=== PATIENT | male | born 1955 | race Caucasian/White ===

== ENCOUNTER 2018-05-28 10:49 | Inpatient (IN) ==
[2018-05-28] MEDS ORDERED: ZOFRAN IV PRN (17:59)
[2018-05-28] MEDS ORDERED: TYLENOL PO PRN (17:59)
[2018-05-28] MEDS ORDERED: PHENERGAN PR PRN (17:59)
[2018-05-28 18:54] LABS: BASO# 0.02 X1000 (0.0-0.2); BASO% 0.5 % (0.0-0.8); EOS# 0.01 X1000 (0.0-0.7); EOS% 0.3 % (0.0-10.0); HEMATOCRIT 37.3 % (42.0-52.0); HEMOGLOBIN 12.8 g/dL (14.0-18.0); LYMPH# 0.52 X1000 (1.2-3.4); LYMPH% 13.3 % (20.5-51.1); MCH 35.9 PG (27-31); MCHC 34.3 g/dL (33-37); MCV 104.5 FL (81-99); MONO# 0.28 X1000 (0.11-0.59); MONO% 7.2 % (1.7-9.3); MPV 9.8 FL (7.4-10.4); NEUT# 3.07 X1000 (1.4-6.5); NEUT% 78.7 % (42.2-75.2); PLT 212 X1000 (130-400); RBC 3.57 XMIL (4.7-6.1); RDW 13.6 % (11.5-14.5)
[2018-05-28] MEDS: NS 1,000 ML IV SCH (18:58)
[2018-05-28 19:21] LABS: ALB/GLOB RATIO 1.5; ALBUMIN 4.1 g/dL (3.5-5.0); CALCIUM 9.3 mg/dL (8.8-10.2); CREATININE 1.4 mg/dL (0.7-1.2); POTASSIUM 3.4 mmol/L (3.5-5.1); TOTAL BILIRUBIN 0.48 mg/dL (0.20-1.00); TOTAL PROTEIN 6.9 g/dL (6.3-8.3)
[2018-05-28 20:03] LABS: INR 1.04; PROTIME 14.4 Seconds (11.0-16.0)
[2018-05-28 20:04] LABS: PTT 30.7 Seconds (22.3-41.8)
--- NOTE | 2018-05-29 00:04 | HISTORY AND PHYSICAL ---
PRIMARY CARE PROVIDER: Dr. Car Barnes. ONCOLOGIST: Dr. Bobby. TOWER EQUIPMENT INSTALLER: Dr. Dailey. CHIEF COMPLAINT: Patient was a direct admission from Dr. Bobby's office for dehydration, acute kidney injury, intractable nausea and vomiting. HISTORY OF PRESENT ILLNESS: Mr. Barton is a 62-year-old male who carries a past medical history of rectal adenocarcinoma with liver metastasis and colostomy, paroxysmal atrial fibrillation, hypothyroidism, hypertension and hyperlipidemia for which he no longer takes any medications for those. The patient reports poor appetite for 4 months. He has had a gradual decline in his overall status since January and accelerated in April. On February 27, he weighed 172 pounds. He is now down to 123. He had an EGD done by Dr. Nguyen a couple weeks ago for his intractable nausea and vomiting. Per patient report, it was normal. Per Dr. Bobby's office, he was found to have an acute kidney injury as well as dehydration. We do not have those lab results in our system. He was given 2 bags of fluid. He reported chills that started today. No headache. No reported fever. No cough. No chest pain. No palpitations. No dizziness. No headache. No dysuria. We will continue with IV hydration, check labs, EKG, chest x-ray, blood cultures. PAST MEDICAL HISTORY: 1. Hypertension. 2. Hyperlipidemia. 3. Rectal adenocarcinoma with liver metastases and colostomy. 4. Paroxysmal atrial fibrillation. 5. Hypothyroidism. PAST SURGICAL HISTORY: 1. Colostomy in July of 2017. 2. Tonsillectomy. 3. Two abdominal hernia repairs. FAMILY HISTORY: Father with CAD. Diabetes runs in his family. SOCIAL HISTORY: Patient lives in [place] with his . He works at [employer] in [place]. He continues to smoke about 15 cigarettes per day. However, it has lessened over the last few weeks. He has done so for several years. No alcohol or illicit drug use ALLERGIES: No known drug allergies. MEDICATIONS: Home medications have not been reconciled. Per patient, he takes: 1. 25 mcg of Synthroid daily. 2. He takes 3 nausea medications. The only one he can remember is Phenergan. He states that this one works best. We will need to continue to follow up on medication reconciliation. REVIEW OF SYSTEMS: A 14 point review of systems completely negative except for those mentioned in HPI. PHYSICAL EXAMINATION: VITAL SIGNS: Temperature is 97.7 degrees axillary, heart rate 63, respirations 16, blood pressure 155/76, O2 is 100% on room air. GENERAL: Mr. Barton is a cachectic 62-year-old male who is sitting up in the bed in no acute distress. HEENT: Atraumatic, normocephalic. PERRL. NECK: Supple. Trachea midline. CARDIOVASCULAR: S1, S2 appreciated. No murmurs, gallops, or rubs noted. RESPIRATORY: Lung sounds clear. Equal chest excursion. Nonlabored breathing. GASTROINTESTINAL: Flat, nontender, nondistended. Positive bowel sounds 4 quadrants. EXTREMITIES: Negative for edema. Bilateral pedal pulses are palpable. Extremities are cool to the touch. SKIN: Appears to be warm, dry, and intact. LABORATORY AND DIAGNOSTIC DATA: Ordered and pending. ASSESSMENT AND PLAN: Rectal adenocarcinoma with liver metastasis. The patient was a direct admit from Dr. Bobby's office. We will continue to follow his recommendations. 1. Dehydration. The patient has not been eating or drinking over the last few months. Per report, he had a creatinine of 2.6 and a baseline at 1.3. We will continue with IV hydration. Per patient, he received 2 bags of IV fluids Dr. Bobby's office prior to being admitted. 2. Intractable nausea and vomiting. We will continue with Zofran and Phenergan. 3. Acute kidney injury. We will continue with IV hydration. The creatinine reported to us was 2.6 with a baseline of 1.3. 4. Hypothyroidism. We will check a TSH. Continue Synthroid when verified. 5. Hypertension. Patient is currently not on any hypertensive medications after weight loss. 6. Hyperlipidemia. He has been taken off a statin. 7. Paroxysmal atrial fibrillation. Per patient, he is not on any medications for his atrial fibrillation or blood thinners. 8. Update and confirm home medications. 9. Further recommendation to follow physician evaluation, laboratory, and diagnostic data. Dictated by DONTAE Mckeon for Boyd Walters MD Addendum: Patient seen and examined by myself. Agree with DONTAE note. It reflects my assessment and plan. Patient is being admitted to hospital for for dehydration and ESVIN. Will start IV fluids and will check BMP daily. Will resume home medications as well and for management of rectal adenocarcinoma will consult his oncologist. Will monitor patient closely. cc: MD Augustine Mcintyre MD Michael C. Donham, MD Ashish K. Basu, MD MTDD
[2018-05-29] MEDS: NS 1,000 ML IV SCH ×4 (02:48→14:21)
[2018-05-29 06:45] LABS: BASO# 0.02 X1000 (0.0-0.2); BASO% 0.4 % (0.0-0.8); EOS# 0.04 X1000 (0.0-0.7); EOS% 0.8 % (0.0-10.0); HEMATOCRIT 38.4 % (42.0-52.0); HEMOGLOBIN 13.1 g/dL (14.0-18.0); IMM GRAN# 0.02 X1000 (0.0-0.04); IMM GRAN% 0.4 % (0.0-0.5); LYMPH# 0.77 X1000 (1.2-3.4); LYMPH% 15.2 % (20.5-51.1); MCH 34.8 PG (27-31); MCHC 34.1 g/dL (33-37); MCV 102.1 FL (81-99); MONO% 7.9 % (1.7-9.3); MPV 9.9 FL (7.4-10.4); NEUT# 3.82 X1000 (1.4-6.5); NEUT% 75.3 % (42.2-75.2); PLT 237 X1000 (130-400); RBC 3.76 XMIL (4.7-6.1); RDW 13.5 % (11.5-14.5); WBC 5.07 X1000 (4.8-10.8)
[2018-05-29 07:15] LABS: ALB/GLOB RATIO 1.8; ALBUMIN 4.3 g/dL (3.5-5.0); CALCIUM 9.5 mg/dL (8.8-10.2); CREATININE 1.3 mg/dL (0.7-1.2); MAGNESIUM 1.6 mg/dL (1.5-2.7); TOTAL BILIRUBIN 0.7 mg/dL (0.20-1.00); TOTAL PROTEIN 6.7 g/dL (6.3-8.3)
--- NOTE | 2018-05-29 07:48 | EKG Report ---
Test Performed on : 05/29/2018 07:27:10 AM Test Reason : chest pain Blood Pressure : / mmHG Vent. Rate : 052 BPM Atrial Rate : 052 BPM P-R Int : 178 ms QRS Dur : 110 ms QT Int : 494 ms P-R-T Axes : 078 064 -41 degrees QTc Int : 459 ms Sinus bradycardia. with sinus arrhythmia. Cannot rule out Inferior infarct , age undetermined Abnormal ECG No previous ECGs available Confirmed by Tyler WHITTEN, Betito Perez ([id number]) on 05/29/2018 4:53:32 PM
--- NOTE | 2018-05-29 08:02 | Diag Imaging Result Doc PS360 ---
EXAM: CHEST-PORTABLE - 05/29/2018 HISTORY: bia, dehydration, N/V TECHNIQUE: Portable chest COMPARISON: 12/08/2014 FINDINGS: Heart size is normal. There is mild tortuosity of the thoracic aorta. The lungs appear clear. There is no pleural effusion or pneumothorax identified. There is a left subclavian central venous catheter with its tip at the superior vena cava. IMPRESSION: No evidence of acute disease. Electronically signed by Feliberto Ann 05/29/2018 8:00 AM
[2018-05-29] MEDS ORDERED: POTASSIUM CHLORIDE 60 MEQ in NS 500 ML IV ONE (09:25)
--- NOTE | 2018-05-29 09:30 | HEMO/ONC CONSULTATION ---
DATE: 05/29/2018 CHIEF COMPLAINT: We have been consulted for further management of patient's rectal adenocarcinoma with liver metastasis. HISTORY OF PRESENT ILLNESS: Mr. Barton presented to our office yesterday for his next round of chemotherapy and upon evaluation, patient had lost 13 pounds within the last 14 days. The patient also complained of increased amounts of nausea and vomiting, unable to eat any food, is able to keep down maybe 1 to 2 protein shakes a day. Creatinine in the office was 2.3. Mucous membranes appear to be very dry, and patient was going into acute renal failure due to dehydration, and at that time, the patient was decided to be admitted to the hospital for further evaluation and management. Mr. Barton is well known to our office, where he follows up for his rectal adenocarcinoma. He was initially diagnosed with poorly differentiated rectal adenocarcinoma in April 2017. He underwent resection in July 2017. He was started on HP chemotherapy with FOLFOX on 10/09/2017. He received 4 cycles and then had restaging scans, which revealed metastatic disease, and then he was changed to FOLFIRI and Vectibix on 01/15/2018. Due to increased nausea and vomiting, the patient had been sent for an EGD, where nothing acute was found at that time to be causing his nausea and vomiting as well. PAST MEDICAL HISTORY: Hypertension, hyperlipidemia, rectal adenocarcinoma with liver metastasis, colostomy paroxysmal atrial fibrillation, and hypothyroidism. PAST SURGICAL HISTORY: Colostomy, tonsillectomy, and 2 abdominal hernia repairs. FAMILY HISTORY: Coronary artery disease and diabetes mellitus. SOCIAL HISTORY: Smokes about half pack cigarettes a day. Denies any alcohol or illicit drug use. ALLERGIES: No known drug allergies. HOME MEDICATIONS: Allopurinol, Lipitor, cilostazol, Synthroid, losartan, metoprolol, Zofran, Reglan, and Phenergan. REVIEW OF SYSTEMS: Negative other than what is mentioned in HPI. PHYSICAL EXAMINATION: Vital Signs: Temperature 97.6 degrees, heart rate 52, respiratory rate 18, blood pressure 150/76, saturating 100% on room air. General: Patient is awake , lying in bed, no acute distress noted. HEENT: Anicteric. Pupils: PERRLA. Mucous membranes appear to be dry. Neck: Supple. Trachea midline. Lymph node survey: No palpable lymphadenopathy. Cardiovascular: S1 , S2. Regular rate and rhythm. Chest: Bilateral breath sounds. Clear to auscultation. Abdomen: Soft, nontender, nondistended. Bowel sounds present all 4 quadrants. No hepatosplenomegaly noted. Skin: Warm, dry, and intact. No petechiae. No clubbing, no rashes, no cyanosis. Neurologic: Alert and oriented x3. No focal deficits noted. LABORATORY DATA: White count 5.07, hemoglobin 13.1, hematocrit 38.4, platelets are 237. Potassium 3.0, BUN 41, creatinine 1.3. ASSESSMENT AND PLAN: 1. Stage IV rectal adenocarcinoma: The patient has increased amounts of nausea and vomiting, unable to tolerate his recent chemotherapy treatments due to extreme amount of nausea. Once patient is discharged and back to baseline, we will consider further treatment options at that time. 2. Acute renal failure due to dehydration: The patient's creatinine in the office yesterday due to dehydration was 2.28. The patient's baseline creatinine runs anywhere from 0.8 to 1.2. Continue hydration with intravenous fluids at this time. Continue to monitor very closely. 3. Nausea and vomiting: Patient will receive Zofran 16mg IV Daily. Reglan 10mg IV prior to each meal, and has Phenergan PRN as needed. Will continue to monitor. 4. Hypokalemia: The patient received 40 mEq of potassium in office yesterday. Continue replacement as necessary. Continue to monitor. 5. Hypothyroidism. Continue recommendations per primary medical team. 6. Hypertension. Continue recommendations by primary medical team. Plan of care discussed with Dr. Bobby. Dictated by DONTAE Orellana for Augustine Bobby MD cc: DONTAE Orellana MD [facility]
--- NOTE | 2018-05-29 11:21 | PROGRESS NOTE ---
DATE: 05/29/2018 SUBJECTIVE: The patient reports feeling better. The patient reports being with a poor appetite for the last couple months but today he ate. He was hungry. No nausea or vomiting after. OBJECTIVE: Vital Signs: Temperature 97.6 degrees, heart rate 52, respiratory rate 18, blood pressure 150/76, O2 saturation 100% on room air. General Examination: This is a chronically ill- looking, 62-year-old, male, looking older than his stated age. Lying in bed, in no acute distress. HEENT: Head is normocephalic and atraumatic. Neck: No JVD noted. No carotid bruits. No lymphadenopathy. No thyromegaly. Cardiovascular Examination: S1 and S2 heard. No murmurs, gallops, or rubs. Regular rate and rhythm. Respiratory Examination: Clear bilaterally to auscultation. No work of breathing or using accessory muscles. Abdomen: Soft, nontender to palpation. Bowel sounds present. No organomegaly. Extremities: No clubbing, cyanosis, or edema. Peripheral pulses present in both legs. Neurological Examination: The patient is alert and oriented x3. Moves 4 extremities. Laboratory Data: White cell count 5.07, hemoglobin 13.1, hematocrit 38.4, platelets 237,000. BMP remarkable for potassium 3.0, creatinine 1.3, BUN 41. ASSESSMENT/PLAN: 1. Acute dehydration. According to information provided by Dr. Bobby's office and by the patient, he has not been eating or drinking over the last 2 to 3 months. Today, he reported that he was feeling hungry and he ate normally. He is not feeling nauseated anymore. At some point, he had reached a creatinine of 2.6. Today, it is 1.3. I think we will continue with intravenous hydration and keep checking BMP daily. 2. Intractable nausea and vomiting. That condition actually has resolved. Patient has eaten today. No complaints of nausea or vomiting. 3. Acute kidney injury. Patient's creatinine is back to baseline. It is 1.3. We will continue to monitor. 4. Hypothyroidism. We will continue with Synthroid home doses. 5. Hypertension. The patient's blood pressure has been controlled after he lost weight. We will continue to monitor vitals every 6 hours. 6. Hyperlipidemia. The patient is not on any statins. 7. Paroxysmal atrial fibrillation. He is not on any blood thinners or any medications to control heart rate, according to the patient. 8. Disposition. I think this patient is doing good. Clinically, he is not nauseated, he is not vomiting, he is eating fine this morning so I am anticipating that he will be discharged in the next 24 to 48 hours. cc: Boyd Walters MD
[2018-05-29] MEDS: ZOFRAN 16 MG in NS 25 ML IV SCH ×2 (12:25→12:30)
[2018-05-29] MEDS ORDERED: TUMS PO PRN (14:11)
--- NOTE | 2018-05-29 14:20 | Diag Imaging Result Doc PS360 ---
EXAM: CT ABDOMEN/PELVIS W/WO CONTRAS INDICATION: rectal adenocarcinoma TECHNIQUE: This exam was performed using automated exposure control, adjustment of mA or kV according to patient size, and/or use of iterative reconstruction technique. COMPARISON: 03/10/2018 FINDINGS: There are several small low dense hepatic nodules consistent with the known liver metastases. These are approximately stable. No new liver lesions are identified. The gallbladder, spleen, and pancreas are unremarkable. There is a small low-density nodule in the right adrenal gland that is stable. There is nonspecific generalized mild mesenteric edema that has developed. This appears to be concentrated around the kidneys. There is no abnormal renal enhancement, however. There are a few stable cystic appearing tiny renal foci. Urinary bladder is unremarkable. There are stable postsurgical changes associated with the right colon and there is a stable patent colostomy on the left. There are fluid-filled loops of small bowel throughout the abdomen with only mild distention. This is nonspecific. It probably represents ileus. Low-grade bowel obstruction is less likely. The remainder of the GI tract is essentially unremarkable. There is aortoiliac atherosclerotic calcification. There is a prominent eccentric aneurysm arising from the proximal right common iliac artery near its origin. It is approximately stable in size measuring up to 3.8 x 2.9 cm (3.7 x 2.8 cm previously), but there is now significant mural thrombus associated with the aneurysm that has developed during the interval. No new lymphadenopathy is appreciated. There is nothing to suggest bony metastatic disease locally. IMPRESSION: 1.Nonspecific generalized mesenteric edema. Consider anasarca. 2.Fluid-filled loops of small bowel throughout the abdomen with mild distention that probably represents ileus. Low-grade obstruction is less likely. 3.Right common iliac artery aneurysm that is similar in size the previous study but there is now significant mural thrombus. 4.Essentially stable abdomen and pelvis, otherwise. Electronically signed by Chano Moralez 05/29/2018 2:18 PM
[2018-05-29] MEDS: REGLAN IV SCH (16:40)
[2018-05-30] MEDS: NS 1,000 ML IV SCH ×3 (01:29→09:30)
[2018-05-30] MEDS: REGLAN IV SCH ×2 (06:42→10:50)
[2018-05-30 07:09] LABS: BASO# 0.04 X1000 (0.0-0.2); BASO% 1.1 % (0.0-0.8); EOS# 0.04 X1000 (0.0-0.7); EOS% 1.1 % (0.0-10.0); HEMATOCRIT 31.9 % (42.0-52.0); HEMOGLOBIN 10.8 g/dL (14.0-18.0); LYMPH# 0.55 X1000 (1.2-3.4); LYMPH% 15.6 % (20.5-51.1); MCH 34.6 PG (27-31); MCHC 33.9 g/dL (33-37); MCV 102.2 FL (81-99); MONO% 11.4 % (1.7-9.3); MPV 9.6 FL (7.4-10.4); NEUT# 2.49 X1000 (1.4-6.5); NEUT% 70.8 % (42.2-75.2); PLT 194 X1000 (130-400); RBC 3.12 XMIL (4.7-6.1); RDW 13.1 % (11.5-14.5); WBC 3.52 X1000 (4.8-10.8)
[2018-05-30 07:28] LABS: AGAP 10; BUN 26 mg/dL (8-22); CALCIUM 8.7 mg/dL (8.8-10.2); CHLORIDE 109 mmol/L (98-107); COSMO 278; CREATININE 0.9 mg/dL (0.7-1.2); ESTIMATED GFR > 60; GLUCOSE 82 mg/dL (70-104); POTASSIUM 3.9 mmol/L (3.5-5.1); SODIUM 137 mmol/L (136-145); TCO2 18 mmol/L (25-35)
--- NOTE | 2018-05-30 09:11 | HEMO/ONC PROGRESS NOTE ---
DATE: 05/30/2018 SUBJECTIVE: The patient nausea continues to improve. The patient is starting to feel much better. OBJECTIVE: Vital Signs: Temperature 97.5, heart rate 54, respiratory rate 18, blood pressure 129/71. Sat 100% on room air. General: The patient is awake, lying in bed. No acute distress noted. HEENT: Anicteric. Pupils PERRLA. Mucous membranes moist. Cardiovascular: S1, S2. Regular rate and rhythm. Chest: Bilateral breath sounds. Clear to auscultation. Abdomen soft, nontender. Bowel sounds present in all 4 quadrants. Neurologic: Alert and oriented x3. No focal deficits noted. LABORATORY DATA: White blood cell count 3.52, hemoglobin 10.8, hematocrit 31.9 , platelets are 194,000. Potassium 3.9. BUN 26, creatinine 0.9. ASSESSMENT AND PLAN: 1. Stage IV rectal adenocarcinoma: Once the patient is back to baseline, we will discuss further treatment at that time. 2. Acute renal failure due to dehydration: Creatinine continues to improve. Today, it is 0.9. Continue rehydration. 3. Nausea and vomiting: The patient will continue to receive Zofran 16 mg IV daily and Reglan 10 mg IV prior to each meal. The patient's nausea is improving. He will try regular diet and if tolerated ok to discharge home. We will continue to monitor. Dictated by DONTAE Orellana for Augustine Bobby MD Patient seen and examined. Patient has been on liquid diet last night and this morning. Tolerated this without any nausea or vomiting. His dehydration has resolved. Creatinine is back to baseline. Discussed with Dr. Escalante. Advanced to regular diet. If he tolerates this well, he will be discharged on current antiemetic regimen. Augustine Bobby M.D. cc: DONTAE Orellana MD [facility]
[2018-05-30] MEDS: ZOFRAN 16 MG in NS 25 ML IV SCH (09:35)
[2018-05-30 12:02] VITALS: BP 118/67
--- NOTE | 2018-05-31 16:21 | DISCHARGE SUMMARY ---
ADMISSION DATE: 05/28/2018 DISCHARGE DATE: 05/30/2018 DISCHARGE DIAGNOSES: 1. Acute dehydration, resolved. 2. Acute kidney injury, resolved. 3. Intractable nausea and vomiting, resolved. 4. Hypothyroidism, stable. 5. Hypertension, stable. 6. Hyperlipidemia. 7. Paroxysmal atrial fibrillation, stable. CONSULTATIONS: Dr. Bobby from Oncology. PROCEDURES: 1. Chest x-ray done on admission showed no evidence of acute disease. 2. Abdomen and pelvis CT without contrast showed nonspecific generalized mesenteric edema. Consider anasarca with fluid-filled loops of small bowel throughout the abdomen with mild distention that probably represent ileus. 3. Right normal celiac artery aneurysm that is similar in size than the previous study. 4. Essential stable abdomen and pelvis otherwise. HOSPITAL COURSE: In brief, this is a 62-year-old male, who came as a direct admission from Dr. Bobby's office for dehydration, acute kidney injury and intractable nausea and vomiting. He has no history of rectal adenocarcinoma with liver metastasis and colostomy as well. He was started on IV fluids and medication for nausea. He started feeling better day after admission. We started clear liquid diet and, after a few months, he started having better appetite. Renal function recovered completely. The patient on the date of discharge was eating okay. I talked with his oncologist about next step in his management. He was okay to send him home. He will see him in the office in 1 week. It is important to remark that he had EGD done by his primary gastrointestinal doctor, Dr. Nguyen, a couple weeks ago from admission for intractable nausea and vomiting, but was normal. At this time, patient is going to be discharged in stable condition. DISCHARGE PHYSICAL EXAMINATION: Vital Signs: Temperature 97.6 degrees, heart rate 97, respiratory rate 18, blood pressure 118/67, O2 saturation 95% on room air. General Examination: This is a 62-year-old male, lying in bed in no acute distress. HEENT: Head is normocephalic, atraumatic. Neck: No JVD noted. No carotid bruits. No lymphadenopathy. No thyromegaly. Cardiovascular exam: S1, S2 heard. No murmurs, gallops, or rubs. Regular rate and rhythm. Respiratory exam: Clear bilaterally to auscultation. No work of breathing or using accessory muscles. Abdomen: Soft, nontender to palpation. Bowel sounds present. No organomegaly. Extremities: No clubbing, cyanosis, or edema. Peripheral pulses present in both legs. Neurological exam: Patient alert and oriented x3. Moves 4 extremities. DISCHARGE DISPOSITION: Home to self-care. LIST OF MEDICATIONS.: 1. Zofran 8 mg 2 tablets p.o. every 6 hours as needed for nausea. 2. Allopurinol 1 tablet p.o. daily. 3. Lipitor 1 tablet p.o. daily. 4. Cilostazol 1 tablet p.o. b.i.d. 5. Levothyroxine 1 tablet p.o. daily. 6. Metoprolol 1 tablet p.o. daily. FOLLOWUP: Follow up with Dr. Bobby in a week. TIME DISCHARGING THIS PATIENT: 26 minutes. cc: Boyd Walters MD
== END 2018-05-30 14:59 | disposition home or self-care (01) | DRG 392 ==
LOC: DIRADM 10:49 → 3N 17:29
PROVIDERS: ATTEND Internal Medicine
CPT/HCPCS: 71010; 71045; 74178; 80048; 80053; 82550; 82607; 82746; 83605; 83735; 84443; 84484; 85025; 85610; 85730; 87040; 93005; 93010; A9270; J2405; J2765; J3480; J7030; J7040; Q9967

== ENCOUNTER 2018-06-12 05:38 | Inpatient (IN) ==
[2018-06-12] MEDS ORDERED: NS 2,000 ML ONE (05:41)
[2018-06-12] MEDS ORDERED: LANOXIN IV ONE ×2 (06:15→07:58)
--- NOTE | 2018-06-12 06:42 | PROVIDER DOCUMENTATION ---
HPI-General Adult - General Chief Complaint: Syncope Stated Complaint: syncope Time Seen by Provider: 06/12/18 05:40 Source: patient, family, old records Allergies/Adverse Reactions: Patient Allergies Allergy/AdvReac Type Severity Reaction Status Date / Time No Known Allergies Allergy Verified 12/23/17 07:41 Home Medications: Home Medication List Medication Instructions Recorded Confirmed Last Taken Type ATORVAstatin [Lipitor] 1 tab PO DAILY 12/10/17 12/23/17 12/23/17 06:00 History Allopurinol 1 tab PO DAILY 12/10/17 12/23/17 12/23/17 06:00 History Cilostazol 1 tab PO BID 12/10/17 12/23/17 12/23/17 06:00 History Levothyroxine [Synthroid] 1 tab PO DAILY 12/10/17 12/23/17 12/23/17 06:00 History Metoprolol Succinate 1 tab PO DAILY 12/10/17 12/23/17 12/23/17 06:00 History Ondansetron [Zofran] 2 tab PO Q6H PRN PRN #60 tab 05/30/18 Unknown Rx - History of Present Illness -Gen Adult Nature of Presenting Problems: 62 yo WM with advanced rectal cancer was just discharged from the hospital a few days ago following an admission for severe dehydration. Chemotherapy was discontinued a few months ago and Dr Bobby has encouraged him to focus on comfort measures, enter the Hospice program , etc. He refused and has continued to vomit and stool non stop. Ultimately he collapsed at which point EMS wa called. His BP en route was60/40 and HR 140, the rhythm atrial fib. Review of Systems - Adult - REVIEW OF SYSTEMS - ADULT ROS:: unobtainable per condition Constitutional: reports: weight loss Eyes: reports: no symptoms reported Ears, Nose, Mouth & Throat: reports: no symptoms reported Cardiovascular: reports: no symptoms reported, irregular heart rate, poor circulation. denies: edema Respiratory: reports: chronic cough, dyspnea on exertion Gastrointestinal: reports: see HPI, abdominal pain, diarrhea, difficulty swallowing, poor appetite, vomiting Genitourinary: reports: no symptoms reported Musculoskeletal: reports: no symptoms reported Integumentary: reports: no symptoms reported Neurological: reports: ataxia, dizziness/vertigo, loss of balance, numbness, paresthesia, syncope Psychiatric: reports: depression Endocrine: reports: no symptoms reported Hematologic/Lymphatic: reports: no symptoms reported Allergic/Immunologic: reports: no symptoms reported Past History - Adult - PAST MEDICAL HISTORY-ADULT Review of Records: reports: Old Records Reviewed, Nursing Assessment Review - PRIOR SURGERIES/PROCEDURES Surgical/Procedure History: reports: colonoscopy, bowel surgery - SOCIAL HISTORY Smoking: denies Substance Use: none/never Alcohol Use Frequency: never Physical Exam-General - PHYSICAL EXAM-ADULT Initial Vital Signs Reviewed: Yes - CONSTITUTIONAL General Appearance: severe distress, cachetic - EYES Eyes: PERRL/EOMI, pink conjunctivae, anisocoria - HEAD, EARS, NOSE, MOUTH & THROAT HENMT: normocephalic/atraumatic - NECK Neck: supple. negative: lymphadenopathy - RESPIRATORY Respiratory: chest non-tender, lungs clear, normal breath sounds, accessory muscle use - CARDIOVASCULAR Cardiovascular: no edema, no gallop, JVD, irregularly irregular (HR 150 -afib) - GASTROINTESTINAL (ABDOMEN) Abdominal Exam: soft, hepatomegaly, other (colostomy in place). negative: normal bowel sounds, non tender Progress - PLAN OF CARE/RESULTS Progress/Plan/Lab Results: Vital Signs - 8 hr 06/12/18 05:45 06/12/18 06:00 06/12/18 06:10 Temperature Pulse Rate 106 H 136 H 142 H Respiratory Rate 17 13 19 Blood Pressure 63/28 67/46 130/85 06/12/18 06:20 06/12/18 06:21 06/12/18 06:25 Temperature 97 F L Pulse Rate 146 H 160 H 149 H Respiratory Rate 17 36 H 16 Blood Pressure 126/60 63/38 111/84 06/12/18 06:30 Temperature Pulse Rate 139 H Respiratory Rate 20 Blood Pressure 134/79 Orders Category Date Time Status CBC WITH ELECTRONIC DIFF [HEME] Stat Lab 06/12/18 06:17 Uncollected COMPREHENSIVE METABOLIC PANEL [CHEM] Stat Lab 06/12/18 06:17 Uncollected OCCULT BLOOD SCREENING [STOOL] Stat Lab 06/12/18 06:18 Uncollected TYPE & SCREEN [BBK] Stat Lab 06/12/18 06:28 Uncollected 0.9% Sodium Chloride Inj [Ns] 2,000 ml Med 06/12/18 05:41 Discontinued .ROUTE As Directed Digoxin [Lanoxin] Med 06/12/18 06:15 Discontinued 500 microgm IV NOW ONE He is profoundly ill and not likely to survive the day. The smell is that of a GI bleed although Hct is 30.5%. Stool is brown and watery, guiac sent. Idid visit with his for quite a while and ultimately the pt gave her POA and she did elect to make him DNR and focus primarily on comfort measures. - REASSESSMENT Reassessment #1 Time Reassessed: 07:17 Status: improving (BP and HR improved with IVFs. and patient in agreement with comfort measures only.) - EKG 1 Time of EKG reading by physician:: 06:30 EKG Read and Signed by:: Geovanni Rivera EKG Interpretation (*Must complete 3 of following elements*): Abnormal Rate: 146 Rhythm: atrial fib with RVR QRS: normal ST Wave: normal Prior EKG Comparison: no prior EKG - CONSULTS/PCP/HOSPITALIST Notification #1 *Consult/PCP/Hospitalist*: Dr Escalante Time Discussed: 07:16 Consult Disposition: Admit Departure - Departure Date of Disposition Decision: 06/12/18 Time of Disposition Decision: 07:05 DIAGNOSIS: Rectal cancer metastasized to liver, Atrial fibrillation with rapid ventricular response, GIB (gastrointestinal bleeding) Disposition: ADMITTED INPATIENT 09 Certified Medical Emergency: Emergent Condition: Critical Referrals and Follow-Ups: Augustine Bobby MD [Primary Care Provider] - - Critical Care Note This patient required my direct & personal management of CC.: Yes Total Time (mins): 40 Critical Care Statement: This patient required my direct personal management to treat or rule out processes, the absence of which, could potentiallly result in sudden, clinically significant life or limb threatening deterioration. Attestation - Physician/ VIC Attestation The physician spent face to face time with patient:: Yes Advanced Practice Provider documentation review:: Supervising physician onsite and consulted in the evaluation and care of this patient. The physician did have a face to face encounter with the patient.
[2018-06-12 07:22] LABS: HEMATOCRIT 35.5 % (42.0-52.0); HEMOGLOBIN 12.2 g/dL (14.0-18.0); IMM GRAN# 0.03 X1000 (0.0-0.04); IMM GRAN% 0.5 % (0.0-0.5); LYMPH# 0.45 X1000 (1.2-3.4); LYMPH% 7.2 % (20.5-51.1); MCH 34.8 PG (27-31); MCHC 34.4 g/dL (33-37); MCV 101.1 FL (81-99); MONO# 0.18 X1000 (0.11-0.59); MONO% 2.9 % (1.7-9.3); MPV 10.6 FL (7.4-10.4); NEUT# 5.57 X1000 (1.4-6.5); NEUT% 89.4 % (42.2-75.2); PLT 227 X1000 (130-400); RBC 3.51 XMIL (4.7-6.1); RDW 14.3 % (11.5-14.5); WBC 6.23 X1000 (4.8-10.8)
--- NOTE | 2018-06-12 07:43 | EKG Report ---
Test Performed on : 06/12/2018 05:53:10 AM Test Reason : ED. NO EKG ORDER FOR MUSE Blood Pressure : / mmHG Vent. Rate : 146 BPM Atrial Rate : 214 BPM P-R Int : 000 ms QRS Dur : 092 ms QT Int : 348 ms P-R-T Axes : 000 064 248 degrees QTc Int : 542 ms Atrial fibrillation. with rapid ventricular response. ST & T wave abnormality, consider inferior ischemia Abnormal ECG When compared with ECG of 29-MAY-2018 07:27, Atrial fibrillation. has replaced Sinus rhythm. Vent. rate has increased BY 94 BPM Minimal criteria for Inferior infarct are no longer present Nonspecific T wave abnormality, worse in Lateral leads Unconfirmed Result
[2018-06-12] MEDS ORDERED: DUONEB (A & A) INH PRN (07:44)
[2018-06-12] MEDS ORDERED: SODIUM CHLORIDE 0.9% INJ PRN (07:44)
[2018-06-12] MEDS ORDERED: ZOFRAN IV PRN (07:44)
[2018-06-12] MEDS ORDERED: PHENERGAN IV PRN (07:44)
[2018-06-12] MEDS ORDERED: TYLENOL PO PRN (07:44)
[2018-06-12 07:45] LABS: ALB/GLOB RATIO 1.5; ALBUMIN 3.3 g/dL (3.5-5.0); CALCIUM 8.2 mg/dL (8.8-10.2); CREATININE 2.8 mg/dL (0.7-1.2); POTASSIUM 3.3 mmol/L (3.5-5.1); TOTAL BILIRUBIN 0.66 mg/dL (0.20-1.00); TOTAL PROTEIN 5.5 g/dL (6.3-8.3)
[2018-06-12] MEDS ORDERED: NS 1,000 ML IV SCH (07:45)
[2018-06-12] MEDS ORDERED: ATIVAN IV PRN (07:45)
[2018-06-12] MEDS ORDERED: POTASSIUM CHLORIDE 20 MEQ/SWI 20 MEQ/100 ML IVPB IV ONE (07:53)
[2018-06-12] MEDS ORDERED: NS 1,000 ML IV ONE ×3 (07:56→07:58)
[2018-06-12] MEDS ORDERED: CORDARONE IV ONE (07:58)
[2018-06-12] MEDS: PROTONIX IV SCH ×2 (08:10→22:24)
[2018-06-12] MEDS: SODIUM CHLORIDE 0.9% INJ SCH (08:10)
[2018-06-12] MEDS: NS 1,000 ML IV SCH ×2 (08:30→22:24)
[2018-06-12] MEDS ORDERED: MAGNESIUM SULFATE 4 GM/S.W.I. 4 GM/100 ML IVPB IV ONE (08:41)
[2018-06-12 08:44] LABS: FREE T4 1.03 ng/dL (0.93-1.70); TSH 3.54 uIUmL (0.27-4.20)
[2018-06-12] MEDS: DUONEB (A & A) INH SCH ×2 (09:17→16:52)
[2018-06-12] MEDS: CARAFATE LIQUID PO SCH ×2 (11:05→16:19)
--- NOTE | 2018-06-12 12:23 | HISTORY AND PHYSICAL ---
PRIMARY CARE PROVIDER: Dr. Barnes ONCOLOGIST: Dr. Bobby [place] MATE: Dr. Dailey CHIEF COMPLAINT: Over the last 4 days, having dark emesis with nausea and excessive dark stool through the colostomy. HISTORY OF PRESENT ILLNESS: Mr. Bridger Barton is a 62-year-old male with a medical history of rectal adenocarcinoma with liver metastases and colostomy, followed by Dr. Bobby. Apparently over the last couple of weeks, the patient's had noticed a decline in the patient's status. Blood pressures have been running a little lower than usual, and then over the last 4 or 5 days, he has had excessive dark emesis about every 2 hours, along with excessive dark stools through the colostomy. His last admission was April 2018 and at that time was admitted for dehydration, acute kidney injury and intractable nausea and vomiting. He had a recent abdominal pelvic CT on 05/28/2018, which showed generalized mesenteric edema, anasarca, fluid filled loops of small bowel with mild distention that probably represented an ileus. He was treated with IV fluid hydration, antiemetics for nausea and started feeling better. He started a clear liquid diet. Renal function had recovered at that time, and even the stated that once he got home, he felt better and actually had an appetite, but essentially he has not eaten in several months, not well anyway. She has barely been able to get Zofran or Phenergan down him. She has taken to Dr. Bobby's office recently where he received IV fluid hydration as well but continues to become worse with his nausea and vomiting. Hemoglobin and hematocrit on this admission are 12 and 35, which is actually improved since 05/30/2018. He does show signs of acute kidney injury with a creatinine of 2.8, and he has atrial fibrillation with a rapid ventricular response. He has received IV fluid hydration, had Protonix scheduled, some Carafate, and electrolytes were replaced along with medication to attempt slowing the heart rate. The blood pressure is a little lower, 90s to low 100s. On admission, ER physician, Dr. Rivera, spoke with the and the patient about comfort measures, palliative care, and this is their wish currently. He placed the Do Not Resuscitate order and we consulted palliative care, but also consulted Dr. Bobby. The patient easily awakens. He is resting at this time. He answers questions appropriately. PAST MEDICAL HISTORY: 1. Hypertension but lately over the last of months has been hypotensive. 2. Hyperlipidemia. 3. Rectal adenocarcinoma with liver metastases and colostomy. No chemo or treatments over the last 6 or more months. 4. Paroxysmal atrial fibrillation. 5. Hypothyroidism. PAST SURGICAL HISTORY: 1. Colostomy July 2017. 2. Tonsillectomy. 3. Two abdominal hernia repairs. FAMILY HISTORY: Father had coronary disease and diabetes. SOCIAL HISTORY: Smoked less than 1 pack per day but recently has not been able to smoke. Lives in [place] with his . No alcohol or illicit drug use. ALLERGIES: No known drug allergies. HOME MEDICATIONS: 1. Phenergan 25 mg p.o. every 6 hours p.r.n. 2. [place] 10 one tablet p.o. every 4-6 hours p.r.n. 3. Reglan 10 mg p.o. t.i.d. 4. Prilosec 20 mg p.o. twice daily. 5. Zofran 4 mg sublingual daily. 6. Carafate 1 gram p.o. daily. REVIEW OF SYSTEMS: A 14-point review of systems is complete and all are negative except for those mentioned above in HPI. He actually currently denies nausea or abdominal pain. PHYSICAL EXAMINATION: VITAL SIGNS: Temperature 97, heart rate 104, respiratory rate 16, blood pressure 101/54. O2 saturation not recorded. GENERAL: Mr. Bridger Barton is a 62-year-old male. He is in no acute distress. He is resting comfortably in bed and easily awake. Answers questions appropriately. HEENT: Atraumatic, normocephalic. Pupils equal, round and reactive to light. Extraocular movements intact. Mucous membranes very dry. NECK: Trachea midline. CARDIOVASCULAR: Irregularly irregular, tachycardic rate and rhythm. No rubs, gallops, murmurs. No lower extremity edema. +1 dorsalis pedis pulses, +2 radial pulses. Negative JVD or carotid bruits. PULMONARY: Clear to auscultate, bilateral breath sounds. No accessory muscle use or work of breathing noted. GASTROINTESTINAL: Left colostomy intact with dark stool. Hypoactive bowel sounds. Nontender with palpation. EXTREMITIES: Moves all extremities. Decreased range of motion and strength, 4/ 5 in all extremities. NEUROLOGIC: Oriented x3. Follows commands. Sensory is intact. SKIN: Warm, dry, intact and pale. LABORATORY DATA: White blood cells 6000, hemoglobin 12, hematocrit 35, platelet count 227. Sodium 135, potassium 3.3, BUN 80, creatinine 2.2, glucose 128, calcium 8.2, magnesium 1.3, bilirubin 0.66. AST 23, ALT 19, albumin 3.3. TSH 3.54, free T4 1.03. Stool positive for occult blood. IMAGING: Only had an EKG which showed atrial fibrillation with RVR, rate 146. ASSESSMENT AND PLAN: 1. Rectal adenocarcinoma with liver metastases and colostomy, and no chemo for 6 or more months, with the patient and requesting for Do Not Resuscitate, comfort care. Palliative care orders placed. Dr. Bobby consult placed. Will request a private room. Morphine, Ativan p.r.n. placed. Will also treat elevated heart rate for comfort. He can have oxygen as needed. 2. Atrial fibrillation with rapid ventricular response. He has received digoxin , amiodarone, and electrolytes are being replaced. Heart rate went for 130s to 160s, to low 100s. Blood pressure is stabilizing out. 3. Upper gastrointestinal bleed likely. Will do 40 mg of IV Protonix twice a day and oral Carafate every 6 hours. Transfuse blood if needed. 4. Acute kidney injury. He is getting aggressive IV fluid hydration at this time. We will repeat labs in the morning. 5. Deep venous thrombosis prophylaxis with sequential compression devices. Dictated by DONTAE Smalls for Boyd Walters MD Addendum: Patient seen and examined by myself. Agree with DONTAE note. It reflects my assessment and plan. Patient is being admitted to hospital for dehydration and possible GI bleeding. All those factors has triggered A fib with RVR. Will control heart rate and will provide aggressive fluid resuscitation. Will monitor patient closely. For rectal adenocarcinoma with liver metastasis will consult his Oncologist Dr. Bobby but I think at this point he is not a candidate for any chemotherapy. cc: DONTAE Smalls MD [facility]
[2018-06-12] MEDS: NORCO-7.5 PO PRN (22:24)
[2018-06-13] MEDS: CARAFATE LIQUID PO SCH ×5 (00:37→20:51)
[2018-06-13] MEDS: DUONEB (A & A) INH SCH ×3 (05:51→15:37)
[2018-06-13 07:15] LABS: INR 1.3; PROTIME 17.2 Seconds (11.0-16.0)
[2018-06-13 07:16] LABS: PTT 39.5 Seconds (22.3-41.8)
[2018-06-13 07:22] LABS: BASO# 0.01 X1000 (0.0-0.2); BASO% 0.2 % (0.0-0.8); HEMATOCRIT 28.2 % (42.0-52.0); HEMOGLOBIN 9.5 g/dL (14.0-18.0); IMM GRAN# 0.02 X1000 (0.0-0.04); IMM GRAN% 0.4 % (0.0-0.5); LYMPH# 0.29 X1000 (1.2-3.4); LYMPH% 5.2 % (20.5-51.1); MCH 34.4 PG (27-31); MCHC 33.7 g/dL (33-37); MCV 102.2 FL (81-99); MONO# 0.16 X1000 (0.11-0.59); MONO% 2.9 % (1.7-9.3); MPV 9.7 FL (7.4-10.4); NEUT# 5.12 X1000 (1.4-6.5); NEUT% 91.3 % (42.2-75.2); PLT 126 X1000 (130-400); RBC 2.76 XMIL (4.7-6.1); RDW 14.2 % (11.5-14.5)
[2018-06-13 07:44] LABS: LYMPHS 12 % (21-51); MONO 2 % (1-9); SEGS 86 % (42-75)
[2018-06-13 07:45] LABS: ALB/GLOB RATIO 1.2; ALBUMIN 2.4 g/dL (3.5-5.0); CALCIUM 7.6 mg/dL (8.8-10.2); CREATININE 1.3 mg/dL (0.7-1.2); MAGNESIUM 1.7 mg/dL (1.5-2.7); TOTAL BILIRUBIN 0.35 mg/dL (0.20-1.00); TOTAL PROTEIN 4.4 g/dL (6.3-8.3)
--- NOTE | 2018-06-13 08:59 | HEMO/ONC CONSULTATION ---
DATE: 06/13/2018 CHIEF COMPLAINT: We have been consulted for further evaluation and management of patient's rectal adenocarcinoma with liver metastasis. HISTORY OF PRESENT ILLNESS: Mr. Barton is a pleasant 62-year-old male who presented to the emergency department due to being extremely weak, severe dehydration and at home started vomiting and diarrhea that was nonstop. While he was at home, he did have a syncopal episode and passed and that is when the family called EMS. En route, blood pressure was 60/40 and heart rate was 140s with atrial fibrillation. Mr. Barton is known to our office where he follows for his rectal adenocarcinoma. The patient was initially diagnosed with rectal adenocarcinoma in April 2017. He underwent resection in July 2017 and was started on chemotherapy with FOLFOX on 10/09/2017. He received 4 cycles and then had a restaging scan which revealed metastatic disease at that time. He then changed to FOLFIRI and Vectibix on 01/15/2018. Due to increased nausea and vomiting, the patient has been sent for an EGD where nothing at that time acute was found to be causing his increased amounts of nausea and vomiting. The patient last received chemotherapy 05/14/2018, and once again after treatment, he became extremely nauseated and vomiting at that time. The patient was then readmitted to the hospital due to severe dehydration and acute renal failure as well. Was given strict instructions how to control his nausea, was discharged home feeling better at that time. Came back in office this past Saturday complaining of nausea and vomiting again , was given IV hydration and reiterated instructions on control his nausea, and then was unable control his nausea and went to the emergency department. PAST MEDICAL HISTORY: Hypertension, hyperlipidemia, rectal adenocarcinoma with liver metastasis, colostomy, paroxysmal atrial fibrillation, and hypothyroidism. PAST SURGICAL HISTORY: Colostomy, tonsillectomy, and 2 abdominal hernia repairs. FAMILY HISTORY: Coronary artery disease and diabetes mellitus. SOCIAL HISTORY: Smokes about a half pack cigarettes a day. Denies any alcohol or illicit drug use. ALLERGIES: No known drug allergies. HOME MEDICATIONS: 1. Lipitor. 2. Cilostazol. 3. Synthroid. 4. Losartan. 5. Metoprolol. 6. Zofran. 7. Reglan. 8. Phenergan. REVIEW OF SYSTEMS: Negative than otherwise mentioned in HPI. PHYSICAL EXAMINATION: Vital Signs: Temperature 97.9 degrees, heart rate 81, respiratory rate 16, blood pressure 120/66, saturating 94% on room air. General: Patient is awake, lying in bed, no acute distress noted. HEENT: Anicteric. Pupils PERRLA. Mucous membranes noted to be dry. Neck: Supple. Trachea midline. No JVD noted. Lymph node survey: No palpable lymphadenopathy. Cardiovascular: S1, S2. Regular rate and rhythm. Chest: Bilateral breath sounds. Clear to auscultation. Abdomen: Soft, mildly tender. Bowel sounds present in all 4 quadrants. Skin: Warm, dry, and intact. No petechiae, no rashes, cyanosis. Neurologic: Alert and oriented x3. No focal deficits noted. LABORATORY DATA: White count 5.60, hemoglobin 9.5, hematocrit 28.2, platelets are 126,000. Potassium 3.0, BUN 63, creatinine 1.3. ASSESSMENT AND PLAN: 1. Rectal adenocarcinoma with liver metastasis: The patient last received chemotherapy on 05/14/2018. The patient has not been tolerating chemotherapy well due to increased amounts of nausea. At this time, the patient has wanting to discuss comfort measures if nothing else could be done. At this time, we will continue to monitor. 2. Atrial fibrillation with rapid ventricular response: Heart rate has improved. Continue medication per primary medical team. 3. Upper gastrointestinal bleed: Continue proton pump inhibitors as ordered. Transfuse if needed. 4. Acute kidney injury: Continue with IV hydration. Creatinine has improved, it is down to 1.3 this morning. 5. Deep venous thrombosis prophylaxis. Continue with sequential compression devices as ordered. Dictated by DONTAE Orellana for Augustine Bobby MD Patient seen and examined. As above. At length discussion regarding his disease status, prognosis and further management. At this point we have decided to go home with comfort measures once his acute renal failure and dehydration results. Questions were addressed. Augustine Bobby M.D. cc: DONTAE Orellana MD [facility]TD[facility]
[2018-06-13] MEDS: PROTONIX IV SCH ×2 (09:35→20:51)
[2018-06-13] MEDS: SODIUM CHLORIDE 0.9% INJ SCH (09:35)
[2018-06-13] MEDS: MORPHINE IV PRN ×2 (09:35→19:27)
[2018-06-13] MEDS: NS 1,000 ML IV SCH ×3 (13:34→19:28)
--- NOTE | 2018-06-13 14:38 | PROGRESS NOTE ---
DATE: 06/13/2018 SUBJECTIVE: The patient is pretty much sleepy, at this time. He just got 1 dose of pain medication. is at bedside, reports that he has been doing fine. OBJECTIVE: Vital Signs: Temperature 97.8, heart rate 81, respiratory rate 17, blood pressure 120/64. O2 saturation 95% on room air. General: This is a 62-year-old, chronically ill-looking and frail, male, lying in bed, in no acute distress. Cardiovascular: S1, S2 heard. No murmurs, gallops, or rubs. Regular rate and rhythm. Respiratory: Clear bilaterally to auscultation. No work of breathing or using accessory muscles. Abdomen: Soft , nontender to palpation. Bowel sounds present. No organomegaly. There is a left colostomy intact. Extremities: No clubbing, cyanosis, or edema. Peripheral pulses present in both legs. There is some muscle waste noted in both lower extremities. Neurological: Patient is sleepier because of pain medication that he just received. LABORATORY DATA: Reviewed. ASSESSMENT AND PLAN: 1. 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 Atrial fibrillation with rapid ventricular response. 2. Possible upper gastrointestinal bleeding. 3. Acute kidney injury. 4. The patient has been admitted to the hospital for those conditions mentioned above. Per his and me, I think this patient is not able to tolerate any more chemotherapy. He has very advanced rectal adenocarcinoma. He has also liver metastasis as well. At this point, I think the option for him is to do hospice. Apparently, patient is not completely okay with that. We have consulted palliative care. Dr. Bobby also has been consulted and they think that this patient is not definitely a candidate for continuing to have medical treatment. His A fib is controlled, heart rate is under control. No signs of GI bleeding. His hemoglobin is stable. Renal function is getting better. So, at this point, we will see what the hospice team has to say. As I mentioned before, he is not a candidate for any more active treatment for this cancer. agreed with the plan. At this point, patient is full code. Palliative care is going to talk to this patient today, and also inform this patient about hospice. cc: Boyd Walters MD [facility]
[2018-06-14] MEDS: NS 1,000 ML IV SCH ×5 (01:23→21:07)
[2018-06-14] MEDS: CARAFATE LIQUID PO SCH ×4 (01:23→21:06)
[2018-06-14] MEDS: NORCO-7.5 PO PRN (01:24)
[2018-06-14] MEDS: DUONEB (A & A) INH SCH ×3 (06:02→16:55)
[2018-06-14] MEDS: PROTONIX IV SCH ×2 (07:48→21:07)
[2018-06-14] MEDS: MORPHINE IV PRN ×2 (11:42→21:06)
[2018-06-14] MEDS: NEURONTIN PO SCH (13:07)
--- NOTE | 2018-06-14 14:55 | PROGRESS NOTE ---
DATE: 06/14/2018 SUBJECTIVE: Patient is lying comfortable in the bed. No complaints at this time. OBJECTIVE: Vital Signs: Temperature 97.6 degrees, heart rate 80, respiratory rate 20, blood pressure 125/67, O2 saturation 94% on room air. General Examination: This is a chronically ill looking 62-year-old male lying in bed in no acute distress. Cardiovascular: S1, S2 heard. No murmurs, gallops, or rubs. Regular rate and rhythm. Respiratory: Coarse breath sounds noted in both pulmonary bases. Patient not using any accessory muscles or having work of breathing. Neurological: Patient is alert and oriented x3. Moves 4 extremities. ASSESSMENT AND PLAN: 1. 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 2. Possible GI bleeding. 3. Acute kidney injury. 4. At this time, the patient has been in the hospital because he was not feeling good. He was found in atrial fibrillation with rapid ventricular rate and also was having shortness of breath. Now this patient is normally stable. We know he had pretty much advanced rectal cancer. So, he decided to comfort care measures only. Actually hospice company has been consulted and I think this Saturday he should be good to go to home with hospice. cc: Boyd Walters MD
[2018-06-14] MEDS: SODIUM CHLORIDE 0.9% INJ SCH (21:07)
[2018-06-15] MEDS: CARAFATE LIQUID PO SCH ×5 (00:22→20:07)
[2018-06-15] MEDS: NS 1,000 ML IV SCH ×3 (00:22→16:36)
[2018-06-15] MEDS: NEURONTIN PO SCH ×4 (00:22→20:06)
[2018-06-15] MEDS: NORCO-7.5 PO PRN (00:23)
[2018-06-15] MEDS: DUONEB (A & A) INH SCH ×3 (05:58→15:49)
[2018-06-15] MEDS: SODIUM CHLORIDE 0.9% INJ SCH ×2 (10:34→20:07)
[2018-06-15] MEDS: PROTONIX IV SCH ×2 (10:34→20:06)
--- NOTE | 2018-06-15 12:34 | PROGRESS NOTE ---
DATE: 06/15/2018 SUBJECTIVE: I went to check this patient this morning, and he reports feeling fine now. Pain is under control. No other complaints noted. OBJECTIVE: Vital Signs: Temperature 98.0 degrees, heart rate 82, respiratory rate 16, blood pressure 118/52, O2 saturation 98% on room air. General: This is a chronically ill-looking 62- year-old male, lying in bed, in no acute distress. Cardiovascular: S1, S2 heard. No murmurs, gallops, or rubs. Regular rate and rhythm. Respiratory: Clear bilaterally to auscultation. No work of breathing or using accessory muscles. Abdomen: Soft, nontender to palpation. Bowel sounds present. No organomegaly. Neurological: Patient is alert, oriented x3. Moves 4 extremities. ASSESSMENT AND PLAN: 1. Rectal adenocarcinoma with liver metastases and colostomy. 2. Possible gastrointestinal bleeding. 3. Acute kidney injury. DISPOSITION: At this point, the patient agreed to go home with hospice. In his hospitalization, we are controlling basically all of his symptoms so if tomorrow everything is arranged, we can send him home with hospice. cc: Boyd Walters MD
[2018-06-15] MEDS: MORPHINE IV PRN (20:06)
[2018-06-16] MEDS: NS 1,000 ML IV SCH ×3 (00:07→06:35)
[2018-06-16] MEDS: DUONEB (A & A) INH SCH ×2 (05:48→10:33)
[2018-06-16] MEDS: CARAFATE LIQUID PO SCH ×2 (06:21→09:17)
[2018-06-16] MEDS: SODIUM CHLORIDE 0.9% INJ SCH (09:17)
[2018-06-16] MEDS: NEURONTIN PO SCH (09:17)
[2018-06-16] MEDS: PROTONIX IV SCH (09:17)
--- NOTE | 2018-06-16 12:32 | DISCHARGE SUMMARY ---
ADMISSION DATE: 06/12/2018 DISCHARGE DATE: 06/15/2018 CONSULTATIONS: Dr. Bobby with Oncology. PERTINENT PROCEDURES: None. DISCHARGE DIAGNOSES: 1. 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 The patient will be going home with [facility] today. 2. Possible gastrointestinal bleeding. 3. Acute kidney injury. 4. Hypertension. 5. Hyperlipidemia. 6. Paroxysmal atrial fibrillation. 7. Hypothyroidism. HOSPITAL COURSE: Briefly, Mr. Barton is a 62-year-old male who carries a past medical history of rectal adenocarcinoma with liver metastasis and colostomy, followed by Dr. Bobby. The patient was brought to the ED by his . She noticed a decline in his status. His blood pressures were running lower than usual. Over the last 4 to 5 days prior to admission, he had excessive dark emesis about every 2 hours, along with excessive dark stools through the colostomy. His last admission was in 04/2018. At that time, he was admitted for dehydration, acute kidney injury, and intractable nausea and vomiting. His recent abdomen and pelvis CT on 05/28/2018 showed generalized mesenteric edema and fluid-filled loops of small bowel with mild distention that probably represented ileus. He was treated with IV hydration and antiemetics for nausea, and started feeling better. He was able to hold down some liquids. His renal function improved and recovered at that time. Per the 's report, once he had gotten home, he felt better, had a better appetite, but essentially he had not eaten in several months, or not well anyway. She had barely been able to get Zofran or Phenergan on board. He was taken to Dr. Bobby' s office, where he again received IV hydration, but continued with his nausea and vomiting. His hemoglobin and hematocrit last admission were 12 and 35, and had improved since 03/29/2019. He did have signs of an acute kidney injury with creatinine of 2.8. He was in atrial fibrillation with RVR. He received IV hydration again, placed on Protonix and Carafate, replenished his electrolytes, along with medications to slow his heart rate. He was somewhat hypotensive. The ED physician spoke with the and the patient about comfort measures, palliative care. He was placed as a DO NOT RESUSCITATE. Consulted Palliative Care, as well as Dr. Bobby. He will be discharging home with [facility]. His acute renal failure has improved. His hemoglobin and hematocrit have remained stable. DISCHARGE VITAL SIGNS: Temperature is 99.1 degrees, heart rate 73, respirations 16, blood pressure 125/70, O2 is 92% on room air. DISCHARGE DIET: Regular. DISCHARGE MEDICATIONS: As per [facility]. DISPOSITION: Mr. Barton is being discharged home with [facility]. He can return to the ED or call 911 for any worsening of symptoms. Dictated by DONTAE Mckeon for Boyd Walters MD Addendum: Patient seen and examined by myself. Agree with [employer] note. It reflects my assessment and plan. Patient is being discharged in stable condition. He will be seen by Hospice at home. cc: MD Augustine Mcintyre MD MTDD
[2018-06-16] MEDS: MORPHINE IV PRN (12:56)
[2018-06-16 13:23] VITALS: BP 136/67
== END 2018-06-16 13:25 | disposition hospice, home (50) | DRG 683 ==
LOC: SUPCPDRO → ED 05:38 → SUPCPDRO 08:28 → EDIPHOLD 08:28 → 4N 13:20
PROVIDERS: ATTEND Internal Medicine
CPT/HCPCS: 80053; 82270; 82948; 83735; 84439; 84443; 85025; 85610; 85730; 86850; 86900; 86901; 93005; 94640; 94761; 96365; 96366; 96368; 96375; 96376; 99285; A9270; C9113; J0282; J1160; J2270; J3475; J3480; J7030; S0164; XXXXX